=== PATIENT | male | born 1970 | race Caucasian/White ===

== ENCOUNTER 2018-03-04 12:31 | Emergency (ER) | payer BC, OTHER ==
[~2018-03-04] VITALS: Ht 177.8 cm; Wt 73.9 kg
[2018-03-04] MEDS ORDERED: TRUVADA 200 MG1 EAC1 ORAL (12:55)
[2018-03-04] MEDS ORDERED: TYLENOL EXTRA500 MG ORAL (13:23)
--- NOTE | 2018-03-04 13:25 | Emergency Room Report ---
History of Present Illness General Chief Complaint: Headache Source: Patient Present Illness HPI 48-year-old male patient presents ER complaining of headache for the past 2 days. Patient reports that he was discharged to class II days ago and was tumbling and hit his head on a plastic heater. Reports she was able to finish class. Reports he's been able to work out and have other [employer] classes since that time. Reports he is in the ER because headaches "don't usually" last this long for him. Patient denies taking any medication, states does not "usually take" medication. Patient denies loss consciousness. Patient denies nausea, vomiting, visual changes or vision loss. Patient denies chest pain, shortness of breath, fever. Denies other symptoms at this time. Allergies: Coded Allergies: No Known Allergies (Unverified , 03/04/18) Patient History Past Medical History: see triage record Reviewed Nursing Documentation: PMH: Agreed; PSxH: Agreed Nursing Documentation-PMH Past Medical History: No Stated History Review of Systems All Other Systems: negative except mentioned in HPI Physical Exam Vital Signs Date Time Temp Pulse Resp B/P (MAP) Pulse Ox O2 Delivery O2 Flow Rate FiO2 03/04/18 12:50 98.3 59 16 106/68 100 Room Air 98.2 Sp02 EP Interpretation: reviewed, normal General Appearance: well appearing, no apparent distress, alert, GCS 15, non- toxic Head: normocephalic, atraumatic, other - negative Rick, negative Raccoon, negative skull depression Eyes: bilateral eye normal inspection, bilateral eye PERRL ENT: hearing grossly normal, normal pharynx, no angioedema, normal voice, TMs + canals normal, uvula midline, moist mucus membranes, other - no hemotympanum Neck: full range of motion Respiratory: lungs clear, normal breath sounds, no rhonchi, no respiratory distress, no accessory muscle use, no wheezing, speaking full sentences Cardiovascular #1: regular rate, rhythm, no edema Musculoskeletal: back normal, digits/nails normal, gait/station normal, normal range of motion, non-tender Neurologic: alert, oriented x3, responsive, cone operator III-XII nml as tested, motor strength/tone normal, sensory intact, cerebellar normal, normal gait, speech normal Psychiatric: mood/affect normal Skin: no rash Medical Decision Making PA Attestation Dr. Elena is my supervising Physician whom patient management has been discussed with. Diagnostic Impression: Primary Impression: Head injury ER Course Pt presents to ED c/o headache s/p head injury 2 days ago. DDX considered but are not limited to migraine, cluster CLARKE, tension CLARKE, injury, contusion. Physical exam benign, no skull depression, negative raccoon eyes, negative Rick sign, no hemotympanum, injury occurred 2 days ago, low suspicion for intracranial pathology, does not require imaging at this time. VITAL SIGNS are WNL, patient is afebrile Ordered Tylenol for pain. ER COURSE PE benign, cranial nerves intact as tested. Take Tylenol for pain symptoms. Instructed on benefits, patient agrees to take Tylenol for pain symptoms. Follow-up with primary care provider, discuss referral to neurology and further imaging at that time. Patient is AOx3, neurologically intact, nontoxic appearing, and ambulatory. Patient able to answer questions without difficulty, in no acute distress, stable for discharge home. 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 Patient reports understanding and agreement treatment plan. DISCHARGE: -Rx provided Tylenol At this time pt is stable for d/c to home. Patient is resting comfortably, in no acute distress, nontoxic appearing, talking and smiling. Will provide with patient care instructions and any necessary prescriptions. Patient to take medication as instructed. Care plan and follow-up instructions provided. Patient questions asked and answered. Patient instructed to follow-up with primary care provider in the next 3 days and discuss further referral with PCP to neurologist. ER precautions given. Patient instructed to return to ER immediately for any new or worsening of symptoms including but not limited to fever, neck stiffness , vision changes, and neurological symptoms. - Please note that this Emergency Department Report was dictated using [email or web address] art technology software, occasionally this can lead to erroneous entry secondary to interpretation by the dictation equipment. Last Vital Signs Date Time Temp Pulse Resp B/P (MAP) Pulse Ox O2 Delivery O2 Flow Rate FiO2 03/04/18 12:50 98.3 59 16 106/68 100 Room Air 98.2 Disposition: HOME, SELF-CARE Condition: Stable Scripts Acetaminophen* (TYLENOL EXTRA STRENGTH*) 500 Mg Tablet 500 MG ORAL Q8H PRN for Prn Headache/Temp > 101, #30 TAB 0 Refills Prov: Harjeet Hoyos 03/04/18 Patient Instructions: Head Injury, Adult Additional Instructions: Followup with primary care provider in 3 -5 days. Discuss need for referral to neurology and imaging at that time. Take medications as directed. Patient instructed on rest. Patient questions asked and answered. ER precautions given, patient instructed to return to ER immediately for any new or worsening of symptoms. Harjeet Hoyos March 04, 2018 13:25
[2018-03-04] MEDS ORDERED: Acetaminophen 500mg (ES) tab ORAL ONE (13:30)
[2018-03-04 13:48] VITALS: BP 106/68
== END 2018-03-04 14:05 | disposition home or self-care (01) ==
LOC: EMR 14:03
DX: S09.8XXA Other specified injuries of head, initial encounter (principal); W22.8XXA Striking against or struck by other objects, initial encounter; Y92.9 Unspecified place or not applicable
CPT/HCPCS: 99283